=== PATIENT | female | born 1995 | race Hispanic/Latino ===

== ENCOUNTER 2022-01-01 08:58 | Outpatient (CLI) | payer BC, OTHER ==
[2022-01-02 00:12] LABS: SARS-CoV-2 PCR by NAA Not Detected (NotDetected)
== END 2022-01-01 08:59 | disposition home or self-care (01) ==
LOC: CSHLAB 08:58
PROVIDERS: ATTEND Obstetrics & Gynecology
DX: Z20.822 Contact with and (suspected) exposure to COVID-19 (principal)
CPT/HCPCS: U0003; U0005

== ENCOUNTER 2022-01-05 19:00 | Inpatient (IN) | payer BC, OTHER ==
[~2022-01-05 19:00] MED LIST: Bupivacaine 0.25% HCL 30 ML VIAL ONE
[2022-01-05 19:26] VITALS: BMI 41.0
[2022-01-05] MEDS ORDERED: Ondansetron PF 4 MG/2 ML Vial IVP PRN (19:28)
[2022-01-05] MEDS ORDERED: hydrALAZINE 20 MG/ML VIAL SLOW IVP PRN (19:28)
[2022-01-05] MEDS ORDERED: Lidocaine 1% (PF) 30 ML VIAL SC PRN (19:28)
[2022-01-05] MEDS ORDERED: HYDROcodone/Acetaminophen 5/325 mg Tablet PO PRN ×2 (19:28)
[2022-01-05] MEDS ORDERED: NS w/ Oxytocin 30 units 500 ML IV SCH ×2 (19:28)
[2022-01-05] MEDS ORDERED: Misoprostol 200 MCG TAB PR PRN (19:28)
[2022-01-05] MEDS ORDERED: Zolpidem Tartrate 5 MG TAB PO PRN (19:28)
[2022-01-05] MEDS ORDERED: Acetaminophen 500 MG TAB PO PRN (19:28)
[2022-01-05] MEDS ORDERED: Docusate 100 MG CAP PO PRN (19:28)
[2022-01-05] MEDS ORDERED: Diphenoxylate HCl/Atropine Tablet PO PRN ×2 (19:28)
[2022-01-05] MEDS ORDERED: Ibuprofen 800 MG TAB PO PRN (19:28)
[2022-01-05] MEDS ORDERED: Promethazine HCl 25 MG/ML VIAL IM PRN (19:28)
[2022-01-05] MEDS ORDERED: Butorphanol Tartrate 1 MG/ML VIAL SLOW IVP PRN (19:28)
[2022-01-05 22:52] LABS: Mean Corpuscular HGB CONC 31.8 g/dL (32.0-36.0); Mean Corpuscular Hemoglobin 26.2 pg (27.0-33.0); Mean Corpuscular Volume 82.4 fl (81.6-98.3); Mean Platelet Volume 8.4 fl (7.4-10.4); Platelet Count 327 10x3/uL (150-450); RBC Distribution Width 14.8 % (11.5-14.5); White Blood Cell (WBC) Count 9.4 10x3/uL (3.5-10.5)
[2022-01-05 23:24] LABS: HIV (1/2) Antibody/Antigen Non-Reactive (NonReactive); HIV 1/2 INDEX 0.05 S/CO (<1.00); Hep B Surf Ag Non-Reactive S/CO (NonReactive); Syphilis Antibody Nonreactive (Nonreactive); Syphilis Antibody Index 0.03 S/CO (<1.00 Non-Reactive)
[2022-01-05 23:25] LABS: HBSAg Index 0.24 S/CO (0-0.99)
[2022-01-05] MEDS: Misoprostol 100 MCG TAB VAG SCH ×2 (23:28→23:29)
[2022-01-05] MEDS: Lactated Ringer's 1,000 ML IV SCH (23:29)
[2022-01-06] MEDS ORDERED: Fentanyl 2 mcg/Bup 0.1% Cadd 100 ML ONE (07:52)
[2022-01-06] MEDS ORDERED: Acetaminophen 325 MG TAB PO PRN (07:52)
[2022-01-06] MEDS ORDERED: Hydrocerin (Eucerin) Cream 120 gm Jar TOP PRN (07:52)
[2022-01-06] MEDS ORDERED: ePHEDrine Sulfate 50 MG/10 ML VIAL SLOW IVP PRN (07:52)
[2022-01-06] MEDS ORDERED: Promethazine HCl 25 MG/ML VIAL IM PRN (07:52)
[2022-01-06] MEDS ORDERED: diphenhydrAMINE 50 MG/ML VIAL IVP PRN (07:52)
[2022-01-06] MEDS ORDERED: Lactated Ringer's 500 ML IV PRN (07:52)
[2022-01-06] MEDS ORDERED: Naloxone HCl 0.4 mg/ml Vial IVP PRN ×2 (07:52)
[2022-01-06] MEDS ORDERED: Ondansetron PF 4 MG/2 ML Vial IVP PRN ×2 (07:52→10:53)
[2022-01-06] MEDS ORDERED: Communication Order-Pharmacy FS SCH (08:00)
[2022-01-06] MEDS ORDERED: Fentanyl 2 mcg/Bupivacaine 0.1% Cassette 100 ML EPIDURAL SCH (08:00)
[2022-01-06] MEDS ORDERED: Zolpidem Tartrate 5 MG TAB PO PRN (10:53)
[2022-01-06] MEDS ORDERED: Preparation H Ointment 28 GM TUBE PR PRN (10:53)
[2022-01-06] MEDS ORDERED: diphenhydrAMINE 25 MG CAP PO PRN (10:53)
[2022-01-06] MEDS ORDERED: Lanolin Ointment 7 GM TUBE TOP PRN (10:53)
[2022-01-06] MEDS ORDERED: hydrALAZINE 20 MG/ML VIAL SLOW IVP PRN (10:53)
[2022-01-06] MEDS ORDERED: HYDROcodone/Acetaminophen 5/325 mg Tablet PO PRN ×2 (10:53)
[2022-01-06] MEDS ORDERED: Milk Of Magnesia 30 ML UDCUP PO PRN (10:53)
[2022-01-06] MEDS ORDERED: Benzocaine-Menthol 82.5 ML CAN TOP PRN (10:53)
[2022-01-06] MEDS ORDERED: Misoprostol 200 MCG TAB VAG PRN (10:53)
[2022-01-06] MEDS ORDERED: Bisacodyl 10 MG SUPP PR PRN (10:53)
[2022-01-06] MEDS ORDERED: NS w/ Oxytocin 30 units 500 ML IV SCH (11:00)
[2022-01-06] MEDS ORDERED: NS w/ Oxytocin 30 units 500 ML ONE (11:36)
[2022-01-06] MEDS ORDERED: Misoprostol 200 MCG TAB ONE (11:36)
[2022-01-06] MEDS ORDERED: Methylergonovine 0.2 MG/ML VIAL ONE (11:37)
[2022-01-06] MEDS: Ibuprofen 800 MG TAB PO SCH ×2 (15:46→21:51)
[2022-01-06] MEDS: Docusate 100 MG CAP PO SCH (21:51)
[2022-01-07 04:58] LABS: Hemoglobin 10.4 g/dL (12.0-15.5); Mean Corpuscular HGB CONC 32.1 g/dL (32.0-36.0); Mean Corpuscular Hemoglobin 26.6 pg (27.0-33.0); Mean Corpuscular Volume 82.9 fl (81.6-98.3); Mean Platelet Volume 8.5 fl (7.4-10.4); Platelet Count 273 10x3/uL (150-450); RBC Distribution Width 14.9 % (11.5-14.5); Red Blood Cell (RBC) Count 3.91 10x6/uL (3.90-5.03); White Blood Cell (WBC) Count 9.4 10x3/uL (3.5-10.5)
[2022-01-07] MEDS: Ibuprofen 800 MG TAB PO SCH ×2 (05:21→14:29)
[2022-01-07] MEDS: Ferrous Sulfate 325 MG TAB PO SCH (07:39)
[2022-01-07] MEDS: Lactated Ringer's 1,000 ML IV SCH (07:42)
[2022-01-07] MEDS: Misoprostol 100 MCG TAB VAG SCH (07:43)
[2022-01-07 07:59] VITALS: BP 117/59; TEMP 97.6
[2022-01-07] MEDS: Docusate 100 MG CAP PO SCH (08:54)
[2022-01-07] MEDS ORDERED: Prenatal Vitamin 1 TAB PO SCH (09:00)
[2022-01-07] MEDS ORDERED: Boostrix 0.5 ML (Tdap) VIAL IM ONE (10:53)
== END 2022-01-07 16:00 | disposition home or self-care (01) | DRG 807 ==
LOC: CSHLD 19:09 → CSHPP 01-06 14:40
PROVIDERS: ADMIT Obstetrics & Gynecology; ATTEND Obstetrics & Gynecology
PROC: 10E0XZZ Delivery of Products of Conception, External Approach (ICD-10-PCS; principal; 2022-01-06)
PROC: 10907ZC Drainage of Amniotic Fluid, Therapeutic from Products of Conception, Via Natural or Artificial Opening (ICD-10-PCS; 2022-01-06)
PROC: 3E033VJ Introduction of Other Hormone into Peripheral Vein, Percutaneous Approach (ICD-10-PCS; 2022-01-06)
DX: O36.63X0 Maternal care for excessive fetal growth, third trimester, not applicable or unspecified (principal); Z37.0 Single live birth; Z3A.39 39 weeks gestation of pregnancy
CPT/HCPCS: 36415; 51702; 85027; 86780; 86850; 86900; 86901; 87340; 87389; S0020